=== PATIENT | female | born 1990 | race Caucasian/White ===

== ENCOUNTER → 2016-03-13 | Outpatient (CLI) | payer BC, OTHER ==
[~2016-03-13] MED LIST: AMOX875T PO; ARIP2TAB3 PO; ATV/1 PO; CEFU1TAB36 PO; FLUV100T12 PO; LMC25 PO; SULF800T23 PO; TOPI50TA16 PO; TPM/50 PO
[2016-03-13 15:13] LABS: BASO % 0.5 %; BASO ABS # 0.04 K/uL (0-0.2); COMPLETE YES; EOS % 1.4 %; HEMATOCRIT 42.1 % (37-47); LYMPH % 31.4 %; MEAN CELL VOLUME 85.4 fL (80-100); MEAN CORPUSCULAR HEMOGLOBIN 29.2 pg (25-34); MEAN CORPUSCULAR HGB CONC 34.2 g/dl (32-36); MEAN PLATELET VOLUME 10.1 fL (7.4-10.4); NEUT % 60.7 %; PLATELET COUNT 213 K/uL (130-400); RED BLOOD COUNT 4.93 M/uL (4.2-5.4); WHITE BLOOD COUNT 7.95 K/uL (4.8-10.8)
== END | disposition home or self-care (01) ==
LOC: C.LAB1850 14:27
PROVIDERS: ATTEND Internal Medicine
DX: Z30.9 Encounter for contraceptive management, unspecified (principal)

== ENCOUNTER 2016-04-26 23:05 | Inpatient (IN) | payer BC, OTHER ==
[~2016-04-26] VITALS: Ht 170.2 cm; Wt 117.5 kg
[~2016-04-26 23:05] MED LIST changes: -AMOX875T PO; -CEFU1TAB36 PO; -SULF800T23 PO
[2016-04-26] MEDS ORDERED: AMPICILLIN/SULBACTAM SOD INJ 3,000 MG in SODIUM CHLORIDE 0.9% 100ML 100 ML IV STA (23:28)
[2016-04-26] MEDS ORDERED: TOPIRAMATE 50 MG TAB PO STA (23:28)
[2016-04-26] MEDS ORDERED: FLUVOXAMINE MALEATE 50 MG TAB PO STA (23:28)
--- NOTE | 2016-04-26 23:36 | EMERGENCY ROOM VISIT NOTE ---
History First contact with patient: 23:16 Chief Complaint: BITE Stated Complaint: LEFT HAND DOG BITE, SWOLLEN History of Present Illness The patient is a 25 year old female who presents to the Emergency Room via private vehicle with complaints of "left hand dog bite, swollen". Patient states that earlier today she was helping take her friend's dog to [place], while in the backseat of the car she was trying to hold the dog who became nervous, and turned around and bit her on the left hand between the first and second digit as well as the wrist region. This occurred around 2 PM today. Patient notes that she went to [facility], who prescribed her an antibiotic but she did not begin this as her pharmacy was closed. 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 She feels the redness is rapidly spreading, and the swelling and pain in the hand is also rapidly increasing. She also feels like she has the flu, almost like she is getting sick since the event. She denies any chest pain, shortness of breath, abdominal pain. She has had associated chills. Her tetanus is up-to-date. The dog's rabies vaccinations are up-to-date. She denies chance of . Review of Systems A complete 6-point Review of Systems was discussed with the patient, with pertinent positives and negatives listed in the History of Present Illness. All remaining Review of Systems questions can be considered negative unless otherwise specified. Past Medical/Surgical History Medical Problems: (1) Bipolar disorder (2) Bronchitis (3) Bronchitis Nos (4) Cat bite (5) Cellulitis (6) Cellulitis of left upper extremity (7) Contusion of right hand (8) Cough (9) Dog Bite (10) Fall from slip, trip, or stumble (11) Finger Injury Nos (12) Head Injury, Nos (13) Infected dog bite of hand (14) Injury of left little finger (15) SIRS (systemic inflammatory response syndrome) Family History Heart disease, cancer Social History Smoking Status: Never Smoker Drug Use: none Marital Status: single Housing Status: lives with family Occupation Status: employed Social History: 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 Current/Historical Medications Scheduled Aripiprazole (Abilify), 2 MG PO Q2D Fluvoxamine Maleate (Luvox), 300 MG PO QPM Lamotrigine (Lamotrigine), 75 MG PO QPM Topiramate (Topamax), 50 MG PO QAM Topiramate (Topamax), 75 MG PO QPM Scheduled PRN Lorazepam (Ativan), 1 MG PO QID PRN for Anxiety Allergies Coded Allergies: BEE STING (Verified Allergy, Unknown, SWELLING, 04/26/16) Chlorine (Verified Allergy, Unknown, RASH, 04/26/16) Apple (Verified Adverse Reaction, Mild, Apple Juice - GI symptoms, 04/26/16 ) Physical Exam Vital Signs Date Time Temp Pulse Resp B/P Pulse Ox O2 Delivery O2 Flow Rate FiO2 04/27/16 01:00 98 16 124/76 98 Room Air 04/26/16 23:12 37.1 106 20 139/81 97 Room Air Physical Exam VITAL SIGNS - Vital signs and nursing notes were reviewed. Patient is afebrile , normotensive, 70 tachycardic and is saturating on room air 97%. GENERAL -25-year-old female appearing her stated age who is in no acute distress. Communicates well with provider and answers questions appropriately. SKIN - there is edema, and erythema of the lateral aspect of the left first and second digits extending proximally into the base of the left hand and into the wrist. The area is tender and warm to touch. There are small superficial bites to the bilateral hands. There are also several superficial scratches to the left anterior breast. HEAD - NC/AT. EYES - Sclera anicteric. Palpebral conjunctiva pink and moist with no injection noted. EARS - No deformities of external structures noted on gross examination bilaterally. NOSE - Midline and without cyanosis. MOUTH/OROPHARYNX - Without perioral cyanosis. NECK - Neck with FROM. Supple to palpation. No lymphadenopathy noted. No nuchal rigidity. No meningismus. LUNGS - Chest wall symmetric without accessory muscle use, intercostals retractions, or central cyanosis. Normal vesicular breath sounds CTA B/L. No wheezes, rales, or rhonchi appreciated. CARDIAC - RRR with S1/S2. No murmur, rubs, or gallops appreciated. EXTREMITIES -skin as described above. She is vascular intact in the affected extremity. Numbness sensation to palpation. There is tenderness also to palpation. Good capillary refill. +5/5 strength noted in UE/LE bilaterally. Medical Decision & Procedures ER Provider Diagnostic Interpretation: Hand x-ray read by myself, no fractures or retained foreign body visualized. There is evidence for soft tissue swelling. Laboratory Results 04/26/16 23:55 Red Blood Count 4.64, Mean Corpuscular Volume 83.4, Mean Corpuscular Hemoglobin 29.5, Mean Corpuscular Hemoglobin Concent 35.4, Mean Platelet Volume 9.7, Neutrophils (%) (Auto) 62.0, Lymphocytes (%) (Auto) 29.0, Monocytes (%) (Auto) 7.8, Eosinophils (%) (Auto) 0.7, Basophils (%) (Auto) 0.3, Neutrophils # (Auto) 6.39, Lymphocytes # (Auto) 2.99, Monocytes # (Auto) 0.80, Eosinophils # (Auto) 0.07, Basophils # (Auto) 0.03 04/26/16 23:55 Test 04/26/16 23:55 04/27/16 00:13 04/27/16 00:34 White Blood Count 10.30 K/uL (4.8-10.8) Red Blood Count 4.64 M/uL (4.2-5.4) Hemoglobin 13.7 g/dL (12.0-16.0) Hematocrit 38.7 % (37-47) Mean Corpuscular Volume 83.4 fL (80-100) Mean Corpuscular Hemoglobin 29.5 pg (25-34) Mean Corpuscular Hemoglobin Concent 35.4 g/dl (32-36) Platelet Count 211 K/uL (130-400) Mean Platelet Volume 9.7 fL (7.4-10.4) Neutrophils (%) (Auto) 62.0 % Lymphocytes (%) (Auto) 29.0 % Monocytes (%) (Auto) 7.8 % Eosinophils (%) (Auto) 0.7 % Basophils (%) (Auto) 0.3 % Neutrophils # (Auto) 6.39 K/uL (1.4-6.5) Lymphocytes # (Auto) 2.99 K/uL (1.2-3.4) Monocytes # (Auto) 0.80 K/uL (0.11-0.59) Eosinophils # (Auto) 0.07 K/uL (0-0.5) Basophils # (Auto) 0.03 K/uL (0-0.2) RDW Standard Deviation 39.6 fL (36.4-46.3) RDW Coefficient of Variation 13.1 % (11.5-14.5) Immature Granulocyte % (Auto) 0.2 % Immature Granulocyte # (Auto) 0.02 K/uL (0.00-0.02) Anion Gap 9.0 mmol/L (3-11) Est Creatinine Clear Calc Drug Dose 114.1 ml/min Estimated GFR () 91.2 Estimated GFR (Non- 78.6 BUN/Creatinine Ratio 16.0 (10-20) Calcium Level 9.1 mg/dl (8.5-10.1) Bedside Lactic Acid Venous 1.41 mmol/L (0.90-1.70) Influenza Type A Antigen Neg for Influ A (NEG) Influenza Type B Antigen Neg for Influ B (NEG) Medications Administered Medications (Trade) Dose Ordered Sig/Terence Route Start Time Stop Time Status Last Admin Dose Admin Ampicillin Sodium/ Sulbactam Sodium/ Sodium Chloride (Unasyn Inj/Nss 100ml) 108 ml @ 200 mls/hr NOW STAT IV 04/26/16 23:28 04/27/16 00:00 DC 04/27/16 00:13 200 MLS/HR Fluvoxamine Maleate (Luvox Tab) 300 mg NOW STAT PO 04/26/16 23:28 04/26/16 23:32 DC 04/26/16 23:28 300 MG Lamotrigine (Lamictal Tab) 75 mg NOW STAT PO 04/26/16 23:28 04/26/16 23:32 DC 04/26/16 23:28 75 MG Topiramate (Topamax Tab) 75 mg NOW STAT PO 04/27/16 00:14 04/27/16 00:18 DC 04/27/16 00:14 75 MG Ondansetron HCl 4 mg 4 mg NOW STAT PO 04/27/16 00:14 04/27/16 00:18 DC 04/27/16 00:14 4 MG Sodium Chloride (Nss 500ml) 500 ml @ 999 mls/hr Q31M STAT IV 04/27/16 00:21 04/27/16 00:51 DC 04/27/16 00:21 999 MLS/HR Medical Decision Patient was seen and evaluated as above. After obtaining a thorough history and physical examination IV access was obtained and a CBC, PRP, [id number] lactic, blood cultures were drawn secondary to subjective and objective examination findings. The patient is less than 12 hours out from a dog bite showing significant signs of cellulitis of the hand that is progressing proximally to the wrist. No lymphangitic streaking. She was given 3 g of Unasyn, as well as her nighttime medication as listed above. Due to the involvement, I was concerned about potential retained foreign body or fracture of which I was not able to appreciate upon radiograph. Official readings are pending. Before the infusion medication the patient noted that she felt as if she was getting sick, therefore I did obtain a flu swab which was negative. Patient then vomited. I was concerned for SIRS. Case was discussed with my attending, and the decision was made to consult the admitting team. I spoke Dr. Loya, regarding the patient case and he accepted the admission. Please refer to further documentation regarding the patient's stay. Patient's tetanus is up-to-date. She notes that the dogs rabies shots are up-to -date. Patient does not provide information regarding the graphic design manager of the dog, she fears that they may get in trouble. In the evaluation and treatment of this patient the following differential diagnoses were entertained: Cellulitis, sepsis, SIRS, fracture, retained foreign body, among others. Impression Primary Impression: Dog bite Additional Impressions: Cellulitis SIRS (systemic inflammatory response syndrome) Departure Information Dispostion Admitted as an inpatient Condition FAIR Referrals RV. Rawls MD (PCP) Patient Instructions [facility] Problem Qualifiers Primary Impression: Dog bite Encounter type: initial encounter Qualified Codes: W54.0XXA - Bitten by dog , initial encounter Additional Impressions: Cellulitis Site of cellulitis: extremity Site of cellulitis of extremity: upper extremity Laterality: left Qualified Codes: L03.114 - Cellulitis of left upper limb
[2016-04-27] MEDS ORDERED: ONDANSETRON 4MG OD TAB PO STA (00:14)
[2016-04-27] MEDS ORDERED: TOPIRAMATE 50 MG TAB PO STA (00:14)
[2016-04-27] MEDS ORDERED: SODIUM CHLORIDE 0.9% 500ML 500 ML IV STA (00:21)
[2016-04-27 00:30] LABS: BASO % 0.3 %; BASO ABS # 0.03 K/uL (0-0.2); COMPLETE YES; EOS % 0.7 %; HEMATOCRIT 38.7 % (37-47); IG% 0.2 %; LYMPH ABS # 2.99 K/uL (1.2-3.4); MEAN CELL VOLUME 83.4 fL (80-100); MEAN CORPUSCULAR HEMOGLOBIN 29.5 pg (25-34); MEAN CORPUSCULAR HGB CONC 35.4 g/dl (32-36); MEAN PLATELET VOLUME 9.7 fL (7.4-10.4); MONO % 7.8 %; PLATELET COUNT 211 K/uL (130-400); RED BLOOD COUNT 4.64 M/uL (4.2-5.4)
[2016-04-27 00:47] LABS: CALCIUM 9.1 mg/dl (8.5-10.1); CREATININE 0.99 mg/dl (0.60-1.20); POTASSIUM 3.3 mmol/L (3.5-5.1)
[2016-04-27] MEDS ORDERED: POTASSIUM CHLORIDE 10 MEQ TABCR PO STA (01:39)
[2016-04-27] MEDS ORDERED: ACETAMINOPHEN IV 100 ML IV PRN (01:45)
[2016-04-27] MEDS ORDERED: ZOLPIDEM TARTRATE 5 MG TAB PO PRN (01:45)
[2016-04-27] MEDS ORDERED: ONDANSETRON INJ 2 MG/ML 2 ML VIAL IV PRN (01:45)
[2016-04-27] MEDS ORDERED: LORAZEPAM 1 MG TAB PO PRN (01:45)
[2016-04-27] MEDS ORDERED: SULFAMETHOXAZOLE/TRIMETHOPRIM DS 800/160MG TAB PO STA (01:45)
[2016-04-27] MEDS ORDERED: KETOROLAC TROMETHAMINE 30 MG/ML VIAL IV PRN (01:45)
[2016-04-27] MEDS ORDERED: ACETAMINOPHEN 325 MG TAB PO PRN (01:45)
[2016-04-27 03:13] VITALS: BP 113/77; PULSE 77; TEMP 36.4; O2SAT 100
[2016-04-27] MEDS ORDERED: MoRPHine SULFATE 4 MG/ML 1 ML CARP\\VIAL IV PRN (03:30)
[2016-04-27] MEDS ORDERED: MoRPHine SULFATE 2 MG/ML CARP IV PRN (03:30)
[2016-04-27] MEDS ORDERED: HYDROCODONE/ACETAMOPHEN 5/325MG TAB PO PRN ×2 (03:30)
--- NOTE | 2016-04-27 04:44 | History and Physical ---
History & Physical Date & Time of Service: Apr 27, 2016 at 04:34 Chief Complaint: Cellulitis Of Left Upper Extremity, Sirs Primary Care Physician: RV. Rawls MD History of Present Illness Source: patient The patient is a 25-year-old female who presents emergency department complaint of progressively worsening swelling and redness and pain of her left hand after a dog bite around 2 PM earlier in the day, while helping taking a friend's dog platelets per hospital. Upon return to [place] [facility] and she was not able to get filled due to her pharmacy being closed. 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 She reports that she also feels like she has symptoms of the flu, with generalized muscle aches and nausea, and did have an episode of emesis prior to arrival. She reports that her tetanus is up-to-date, and the dog's rabies vaccinations are up-to-date. Past Medical/Surgical History Medical Problems: (1) Bipolar disorder Status: Chronic (2) Bronchitis Status: Resolved (3) Bronchitis Nos Status: Resolved (4) Cat bite Status: Resolved (5) Cellulitis Status: Resolved (6) Contusion of right hand Status: Resolved (7) Cough Status: Resolved (8) Dog Bite Status: Resolved (9) Fall from slip, trip, or stumble Status: Resolved (10) Finger Injury Nos Status: Resolved (11) Head Injury, Nos Status: Resolved (12) Infected dog bite of hand Status: Resolved (13) Injury of left little finger Status: Resolved Social History Smoking Status: Never Smoker Smokeless Tobacco Use: No Alcohol Use: none Drug Use: none Marital Status: single Occupational Status: employed Multi-Drug Resistant Organisms History of MDRO: No Allergies Coded Allergies: BEE STING (Verified Allergy, Unknown, SWELLING, 04/26/16) Chlorine (Verified Allergy, Unknown, RASH, 04/26/16) Apple (Verified Adverse Reaction, Mild, Apple Juice - GI symptoms, 04/26/16 ) Home Medications Scheduled Aripiprazole (Abilify), 2 MG PO Q2D Fluvoxamine Maleate (Luvox), 300 MG PO QPM Lamotrigine (Lamotrigine), 75 MG PO QPM Topiramate (Topamax), 50 MG PO QAM Topiramate (Topamax), 75 MG PO QPM Scheduled PRN Lorazepam (Ativan), 1 MG PO QID PRN for Anxiety Review of Systems The patient denies chest pain, palpitations, shortness of breath, cough, lower extremity swelling, vision change, hearing change, sore throat, abdominal pain, pelvic pain, blood in urine or stool, dysuria, urinary frequency or urgency, headache, memory loss, abnormal bruising or bleeding, imbalance, focal or generalized weakness, numbness or tingling in legs, back or neck pain, night sweats, or allergy symptoms. The review of systems is otherwise negative other than for that already noted above, and at least 10 systems have been reviewed. Physical Exam Vital Signs Date Time Temp Pulse Resp B/P Pulse Ox O2 Delivery O2 Flow Rate FiO2 04/27/16 03:13 36.4 77 20 113/77 100 Room Air 04/27/16 02:53 71 16 124/76 98 04/27/16 01:00 98 16 124/76 98 Room Air 04/26/16 23:12 37.1 106 20 139/81 97 Room Air The patient is awake, well-developed and adequately nourished, alert and oriented 3, normocephalic and atraumatic, lying in bed and in no acute distress. HEENT--PERRL, EOMI, mucous membranes and oropharynx moist. Neck--supple, no JVD or bruits, thyroid normal, trachea midline, no adenopathy. Heart--normal S1 and S2, no extra beats, no murmurs, rubs or gallops. Lungs--clear bilaterally with good air movement, no respiratory distress, no accessory muscle use. Abdomen--normal bowel sounds and soft, nontender and nondistended, no hernias or masses, no organomegaly. Extremities--bilateral lower extremities no cyanosis, clubbing or edema. There are good distal pulses b/l. For left upper extremity see below. Dermatologic--normal skin turgor, normal color, warm and dry, no abnormal lymph nodes, no rash, except for left hand and wrist which show moderately severe erythema involving the base of the thumb first and second fingers dorsum of the hand and wrist, with puncture wound draining clear fluid. Neurologic--cranial nerves II through XII grossly intact, motor and sensory examination normal. Rheumatologic--normal range of motion, nontender, muscles and joints except for left hand and wrist which have decreased flexion and extension due to edema. Psychiatric--normal affect. Diagnostics Laboratory Results Results Past 24 Hours Test 04/26/16 23:55 04/27/16 00:13 04/27/16 00:34 Range/Units White Blood Count 10.30 4.8-10.8 K/uL Red Blood Count 4.64 4.2-5.4 M/uL Hemoglobin 13.7 12.0-16.0 g/dL Hematocrit 38.7 37-47 % Mean Corpuscular Volume 83.4 80-100 fL Mean Corpuscular Hemoglobin 29.5 25-34 pg Mean Corpuscular Hemoglobin Concent 35.4 32-36 g/dl Platelet Count 211 130-400 K/uL Mean Platelet Volume 9.7 7.4-10.4 fL Neutrophils (%) (Auto) 62.0 % Lymphocytes (%) (Auto) 29.0 % Monocytes (%) (Auto) 7.8 % Eosinophils (%) (Auto) 0.7 % Basophils (%) (Auto) 0.3 % Neutrophils # (Auto) 6.39 1.4-6.5 K/uL Lymphocytes # (Auto) 2.99 1.2-3.4 K/uL Monocytes # (Auto) 0.80 0.11-0.59 K/uL Eosinophils # (Auto) 0.07 0-0.5 K/uL Basophils # (Auto) 0.03 0-0.2 K/uL RDW Standard Deviation 39.6 36.4-46.3 fL RDW Coefficient of Variation 13.1 11.5-14.5 % Immature Granulocyte % (Auto) 0.2 % Immature Granulocyte # (Auto) 0.02 0.00-0.02 K/uL Sodium Level 139 136-145 mmol/L Potassium Level 3.3 3.5-5.1 mmol/L Chloride Level 107 98-107 mmol/L Carbon Dioxide Level 23 21-32 mmol/L Anion Gap 9.0 3-11 mmol/L Blood Urea Nitrogen 16 7-18 mg/dl Creatinine 0.99 0.60-1.20 mg/dl Est Creatinine Clear Calc Drug Dose 114.1 ml/min Estimated GFR () 91.2 Estimated GFR (Non- 78.6 BUN/Creatinine Ratio 16.0 10-20 Random Glucose 97 70-99 mg/dl Calcium Level 9.1 8.5-10.1 mg/dl Bedside Lactic Acid Venous 1.41 0.90-1.70 mmol/L Influenza Type A Antigen Neg for Influ A NEG Influenza Type B Antigen Neg for Influ B NEG Microbiology Results 04/27/16 Blood Culture, Received Pending 04/26/16 Blood Culture, Received Pending Diagnostic Radiology Left hand x-ray shows no signs of foreign body or osteomyelitis. Impression Assessment and Plan Left upper extremity cellulitis secondary to dog bite--the patient will be admitted to the medical floor. She has received Unasyn 3 g IV in the emergency department and this will be continued every 6 hours intervals. We'll also add Bactrim DS by mouth twice a day with first dose now. She does not look to need an I&D at this time, but if she should worsen, we'll consult orthopedic surgery then. Bipolar disorder--continue Abilify 2 mg by mouth every 2 days, fluvoxamine 300 mg by mouth every evening, lamotrigine 75 mg by mouth every evening, topiramate 50 mg by mouth every morning and 75 mg by mouth every evening, and lorazepam 1 mg by mouth 4 times a day when necessary. Level of Care Med/Surg Advanced Directives Existing Advance Directive: No Existing Living Will: No Existing Power of General Car Yard Supervisor: No Resuscitation Status FULL RESUSCITATION VTE Prophylaxis VTE Risk Assessment Done? Y/N: Yes Risk Level: Low Given or contraindicated: Treatment not indicated Social Service Consult None Apply
[2016-04-27 05:03] VITALS: BP 113/77; PULSE 77; TEMP 36.4; Ht 170.2 cm; Wt 117.5 kg
[2016-04-27] MEDS: AMPICILLIN/SULBACTAM SOD INJ 3,000 MG in SODIUM CHLORIDE 0.9% 100ML 100 ML IV SCH ×3 (06:10→18:05)
--- NOTE | 2016-04-27 06:44 | DIAGNOSTIC IMAGING REPORT ---
LEFT HAND MIN 3 VIEWS ROUTINE CLINICAL HISTORY: Dog bite left hand, edema, cellulitic. COMPARISON: Left hand radiographs January 12, 2016. FINDINGS: Alignment of the left hand is anatomic. There is no acute fracture. No radiopaque foreign bodies present. There may be dorsal soft tissue swelling. Carpal bones are intact. There is no radiographic evidence of osteomyelitis. IMPRESSION: No acute fracture or radiographic evidence of osteomyelitis within the left hand. Electronically signed by: Ambrocio Rachel M.D. 04/27/2016 6:43 AM Dictated Date/Time: 04/27/2016 6:42 AM
[2016-04-27 08:06] VITALS: BP 111/72; PULSE 83; TEMP 36.7; O2SAT 98
[2016-04-27] MEDS: ARIPIprazole 1 MG/ML ORAL SOLN 150 ML BTL PO SCH ×3 (09:00→09:08)
[2016-04-27] MEDS: SULFAMETHOXAZOLE/TRIMETHOPRIM DS 800/160MG TAB PO SCH ×2 (09:04→20:53)
[2016-04-27] MEDS: TOPIRAMATE 25 MG TAB PO SCH (09:04)
[2016-04-27] MEDS ORDERED: VANCOMYCIN INJ 1,000 MG in SODIUM CHLORIDE 0.9% 250ML 250 ML IV ONE (14:45)
--- NOTE | 2016-04-27 14:55 | Family Medicine Progress Note ---
Progress Note Date of Service Apr 27, 2016. Subjective Pt evaluation today including: conversation w/ patient, physical exam Pain: No pain reported this morning Voiding: no voiding problems Patient is a healthy 25 year old female that presents with a dog bite to her left hand. Patient denies any n/v, fever, chills. Feels that the swelling has gotten worse but in less pain that yesterday. Medications Current Inpatient Medications Medications (Trade) Dose Ordered Sig/Terence Route Start Time Stop Time Status Last Admin Dose Admin Fluvoxamine Maleate (Luvox Tab) 300 mg QPM PO 04/27/16 21:00 05/27/16 20:59 Lamotrigine (Lamictal Tab) 75 mg QPM PO 04/27/16 21:00 05/27/16 20:59 Lorazepam (Ativan Tab) 1 mg QID PRN PO 04/27/16 01:45 05/27/16 01:44 Topiramate (Topamax Tab) 50 mg QAM PO 04/27/16 09:00 05/27/16 08:59 04/27/16 09:04 50 MG Topiramate (Topamax Tab) 75 mg QPM PO 04/27/16 21:00 05/27/16 20:59 Aripiprazole (Abilify Soln) 2 mg Q2D@0900 PO 04/27/16 09:00 05/27/16 08:59 Acetaminophen (Tylenol Tab) 650 mg Q4H PRN PO 04/27/16 01:45 05/27/16 01:44 Zolpidem Tartrate (Ambien Tab) 5 mg HSZ PRN PO 04/27/16 01:45 05/27/16 01:44 Ondansetron HCl 4 mg 4 mg Q6H PRN IV 04/27/16 01:45 05/27/16 01:44 Acetaminophen (Ofirmev Iv) 100 ml @ 400 mls/hr Q8H PRN IV 04/27/16 01:45 05/27/16 01:44 Ketorolac Tromethamine (Toradol Inj) 30 mg Q6H PRN IV 04/27/16 01:45 05/02/16 01:44 Acetaminophen/ Hydrocodone Bitart (Devine 5/325 Tab) 1 tab Q6H PRN PO 04/27/16 03:30 05/11/16 03:29 Acetaminophen/ Hydrocodone Bitart (Devine 5/325 Tab) 2 tab Q6H PRN PO 04/27/16 03:30 05/11/16 03:29 Morphine Sulfate (MoRPHine SULFATE INJ) 2 mg Q2H PRN IV 04/27/16 03:30 05/11/16 03:29 Morphine Sulfate 4 mg 4 mg Q2H PRN IV 04/27/16 03:30 05/11/16 03:29 Ampicillin Sodium/ Sulbactam Sodium/ Sodium Chloride (Unasyn Inj/Nss 100ml) 108 ml @ 200 mls/hr Q6H IV 04/27/16 06:00 05/07/16 05:59 04/27/16 13:22 200 MLS/HR Trimethoprim/ Sulfamethoxazole 1 tab 1 tab Q12 PO 04/27/16 09:00 05/07/16 08:59 04/27/16 09:04 1 TAB Vancomycin HCl/ Sodium Chloride (Vancomycin Inj/ Nss 250ml) 270 ml @ 125 mls/hr NOW ONCE IV 04/27/16 14:45 04/27/16 16:54 Objective Vital Signs Date Time Temp Pulse Resp B/P Pulse Ox O2 Delivery O2 Flow Rate FiO2 04/27/16 08:06 36.7 83 16 111/72 98 Room Air 04/27/16 08:00 Room Air 04/27/16 05:03 36.4 77 20 113/77 Room Air 04/27/16 03:13 36.4 77 20 113/77 100 Room Air 04/27/16 02:53 71 16 124/76 98 04/27/16 01:00 98 16 124/76 98 Room Air 04/26/16 23:12 37.1 106 20 139/81 97 Room Air Physical Exam General Appearance: WD/WN, no apparent distress Extremities: + pertinent finding (Erythema on the dorsal surface of the hand. Margins of the distal wrist, 1st digit, Finger tips, and 3rd digit. Puncture irving visible over lateral thumb and 2 abrasions on the middle finger. There is some clear bruising over the palmar aspect of the hand. Not warm to touch. Tender to palpation over the first digit near puncture wound. Sensation to sharp and dull still present on finger tips as well as dorum and palmar surfaces. Pulses 2+ at wrist. Limitied range of motion in first 3 digits due to swelling. No pain to palpation or redness of the wrist, mcps, pips, dips.) Neurologic/Psychiatric: alert, normal mood/affect, oriented x 3 Laboratory Results Results Past 24 Hours Test 04/26/16 23:55 04/27/16 00:13 04/27/16 00:34 Range/Units White Blood Count 10.30 4.8-10.8 K/uL Red Blood Count 4.64 4.2-5.4 M/uL Hemoglobin 13.7 12.0-16.0 g/dL Hematocrit 38.7 37-47 % Mean Corpuscular Volume 83.4 80-100 fL Mean Corpuscular Hemoglobin 29.5 25-34 pg Mean Corpuscular Hemoglobin Concent 35.4 32-36 g/dl Platelet Count 211 130-400 K/uL Mean Platelet Volume 9.7 7.4-10.4 fL Neutrophils (%) (Auto) 62.0 % Lymphocytes (%) (Auto) 29.0 % Monocytes (%) (Auto) 7.8 % Eosinophils (%) (Auto) 0.7 % Basophils (%) (Auto) 0.3 % Neutrophils # (Auto) 6.39 1.4-6.5 K/uL Lymphocytes # (Auto) 2.99 1.2-3.4 K/uL Monocytes # (Auto) 0.80 0.11-0.59 K/uL Eosinophils # (Auto) 0.07 0-0.5 K/uL Basophils # (Auto) 0.03 0-0.2 K/uL RDW Standard Deviation 39.6 36.4-46.3 fL RDW Coefficient of Variation 13.1 11.5-14.5 % Immature Granulocyte % (Auto) 0.2 % Immature Granulocyte # (Auto) 0.02 0.00-0.02 K/uL Sodium Level 139 136-145 mmol/L Potassium Level 3.3 3.5-5.1 mmol/L Chloride Level 107 98-107 mmol/L Carbon Dioxide Level 23 21-32 mmol/L Anion Gap 9.0 3-11 mmol/L Blood Urea Nitrogen 16 7-18 mg/dl Creatinine 0.99 0.60-1.20 mg/dl Est Creatinine Clear Calc Drug Dose 114.1 ml/min Estimated GFR () 91.2 Estimated GFR (Non- 78.6 BUN/Creatinine Ratio 16.0 10-20 Random Glucose 97 70-99 mg/dl Calcium Level 9.1 8.5-10.1 mg/dl Bedside Lactic Acid Venous 1.41 0.90-1.70 mmol/L Influenza Type A Antigen Neg for Influ A NEG Influenza Type B Antigen Neg for Influ B NEG Microbiology Results 04/27/16 Blood Culture, Received Pending 04/26/16 Blood Culture, Received Pending Assessment and Plan Patient is a 25 year old female that presented yesterday afternoon with a dog bite to her left hand that occurred at 2pm 1) Dog Bite - Unasyn 3g IV q6h - Bactrim DS BID - When seen for afternoon rounds, the erythema has extended slightly proximally along the wrist about 1-2 mm as well as 1-2 mm along the dorsal surface towards the 4th digit. Added dose of 1gm Vancomycin IV to provide additional coverage 2) Depression and Anxiety - Continue home medications - Abilify 2mg PO q2D - Luvox 300mg PO qPM - Lamictal 75mg PO qPM 3) Migraines - Topamax 50mg qAM, 75mg qPM 4) Pain Control - PRN Devine, Morphine, and Toradol
[2016-04-27 15:00] VITALS: BP 127/83; PULSE 78; TEMP 37; O2SAT 98
[2016-04-27 16:00] VITALS: O2SAT 98
[2016-04-27] MEDS ORDERED: TOPIRAMATE 25 MG TAB PO SCH (21:00)
[2016-04-27] MEDS ORDERED: FLUVOXAMINE MALEATE 50 MG TAB PO SCH (21:00)
[2016-04-28] VITALS: BP 122/77; PULSE 70; TEMP 36.9; O2SAT 98
[2016-04-28] MEDS: AMPICILLIN/SULBACTAM SOD INJ 3,000 MG in SODIUM CHLORIDE 0.9% 100ML 100 ML IV SCH ×2 (00:05→06:17)
[2016-04-28 07:38] VITALS: BP 111/71; PULSE 66; TEMP 36.7; O2SAT 98
[2016-04-28] MEDS: SULFAMETHOXAZOLE/TRIMETHOPRIM DS 800/160MG TAB PO SCH (08:05)
[2016-04-28] MEDS: TOPIRAMATE 25 MG TAB PO SCH (08:06)
[2016-04-28 11:10] VITALS: BP 111/71; PULSE 66; TEMP 36.7; O2SAT 98
[2016-04-28] MEDS ORDERED: SULF800T23 PO (11:27)
[2016-04-28] MEDS ORDERED: AMOX875T PO (11:27)
--- NOTE | 2016-04-28 11:30 | Discharge Instructions ---
Discharge Instructions Admission Reason for Admission: Cellulitis Of Left Upper Extremity, Sirs Discharge Discharge Diagnosis / Problem: Cellulitis 2/2 Dog Bite Discharge Goals Goal(s): Decrease discomfort Activity Recommendations Activity Limitations: per Instructions/Follow-up section Lifting Limitations: gradually increase as tolerated Exercise/Sports Limitations: as tolerated Shower/Bathe: no limitations . Instructions / Follow-Up Instructions / Follow-Up - Take 1 Tab of Bactrim DS twice daily for 8 days (16 Doses Total) - Take 1 Tab of Augmentin twice daily for 8 days (16 Doses Total) - Follow up with primary care physician (Dr. Chappell) in 10 days to reevaluate hand wound - Return to ED if infection appears to be spreading or begin to have fevers Current Hospital Diet Patient's current hospital diet: Regular Diet Discharge Diet Recommended Diet: Regular Diet Pending Studies Studies pending at discharge: no Medical Emergencies . Who to Call and When: Medical Emergencies: If at any time you feel your situation is an emergency, please call 911 immediately. . Non-Emergent Contact Non-Emergency issues call your: Primary Care Provider . . "Provider Documentation" section prepared by Jacinto Poe. VTE Core Measure Inpt VTE Proph given/why not?: Treatment not indicated
--- NOTE | 2016-04-28 14:07 | Discharge Summary ---
Discharge Summary Date of Service Apr 28, 2016. Discharge Summary Admission Date: Apr 27, 2016 at 01:33 Discharge Date: Apr 28, 2016 Discharge Disposition: Home Principal Diagnosis: Cellulitis associated with dog bite Problems/Secondary Diagnoses: (1) Bipolar disorder Status: Chronic Procedures: hand x-ray: swelling, no fractures, no bone involvement Consultations: none Medication Reconciliation New Medications: Amoxicillin & Pot Clavulanate (Augmentin 875-125 mg) 1 Tab Tab 1 TAB PO BID for 8 Days, #16 TAB Sulfamethoxazole-Trimethoprim (Bactrim Ds 800MG/160MG) 1 Tab Tab 1 TAB PO BID for 8 Days, #16 TAB Continued Medications: Aripiprazole (Abilify) 2 Mg Tab 2 MG PO Q2D Fluvoxamine Maleate (Luvox) 100 Mg Tab 300 MG PO QPM, TAB Lamotrigine (Lamotrigine) 25 Mg Tab 75 MG PO QPM Lorazepam (Ativan) 1 Mg Tab 1 MG PO QID PRN for Anxiety, TAB MAX = 4MG DAILY Topiramate (Topamax) 50 Mg Tab 50 MG PO QAM Topiramate (Topamax) 50 Mg Tab 75 MG PO QPM, TAB Discharge Exam Patient feeling much better today, swelling down significantly, no erythema, much less pain. No fevers/chills over night. Review of Systems: Constitutional: No chills, No fatigue, No fever, No problem reported, No sweats, No weakness, No weight loss Eyes: No diplopia, No discharge, No eye pain, No problem reported, No redness, No worsening of vision ENT: No dental problems, No hearing loss, No nasal symptoms, No problem reported, No sore throat, No tinnitus, No trouble swallowing, No unusual epistaxis Respiratory: No cough, No dyspnea at rest, No dyspnea on exertion, No hemoptysis, No problem reported, No shortness of breath, No sputum, No wheezing Cardiovascular: No PND, No chest pain, No claudication, No edema, No orthopnea, No palpitations, No problem reported Abdomen: No GI bleeding, No constipation, No diarrhea, No nausea, No pain, No problem reported, No vomiting Musculoskeletal: + joint pain (left hand swelling, pain), + swelling (left hand), No calf pain, No muscle pain, No problem reported Genitourinary - Female: No dysuria, No hematuria, No urinary frequency, No urinary incontinence, No urinary retention, No urinary urgency Neurologic: No balance problems, No memory loss, No numbness/tingling, No paralysis, No problem reported, No vertigo, No weakness Psychiatric: No anhedonism, No anxiety, No depression symptoms, No insomnia , No problem reported, No substance abuse Endocrine: No excessive thirst, No excessive urination, No fatigue, No problem reported Hematologic / Lymphatic: No abnormal bleeding/bruising, No clotting problems , No night sweats, No problem reported, No swollen lymph nodes Integumentary: + rash (left hand erythema, improved overnight), No bleeding , No color change, No itch, No new/changing skin lesions, No problem reported Physical Exam: General Appearance: WD/WN, no apparent distress Eyes: normal inspection, EOMI, sclerae normal ENT: normal ENT inspection, hearing grossly normal, pharynx normal Neck: supple, no adenopathy, no JVD, trachea midline Respiratory/Chest: chest non-tender, lungs clear, normal breath sounds, no respiratory distress, no accessory muscle use Cardiovascular: regular rate, rhythm, no edema, no gallop, no JVD, no murmur , normal peripheral pulses Abdomen / GI: normal bowel sounds, non tender, soft, no organomegaly Extremities: normal inspection, no calf tenderness, normal capillary refill , no pedal edema, normal range of motion Neurologic/Psychiatric: 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 Clear evidence of cellulitis on admission. Cellulitis left hand associated with dog bite, small penetrating wounds treated with Unasyn and Vancomycin, marked improvement overnight after Vancomycin added in the afternoon will d/c home on 8 more days of Augmentin and Bactrim, total of 10 days of treatment she is instructed to return if pain and/or swelling gets worse instead of better no evidence of any drainable abscess at this time afebrile, WBC normal, BMP normal Depression and Anxiety - Continue home medications - Abilify 2mg PO q2D - Luvox 300mg PO qPM - Lamictal 75mg PO qPM Migraines - Topamax 50mg qAM, 75mg qPM Total Time Spent: Greater than 30 minutes This includes examination of the patient, discharge planning, medication reconciliation, and communication with other providers. Discharge Instructions Please refer to the electronic Patient Visit Report (Discharge Instructions) for additional information. Follow-Up Dr. Chappell in 1-2 weeks, patient says she is leaving for [place] next week for a 10 day trip Additional Copies To RV. Rawls MD
== END 2016-04-28 12:07 | disposition home or self-care (01) | DRG 605 ==
LOC: ENRESERVTM → ENRESERVDT → C.EDB 23:06 → C.MED 04-27 01:33
PROVIDERS: ADMIT Hospitalist; ATTEND Internal Medicine
DX: S61.452A Open bite of left hand, initial encounter (principal); L03.114 Cellulitis of left upper limb; F31.9 Bipolar disorder, unspecified; Z91.030 Bee allergy status; Z91.048 Other nonmedicinal substance allergy status; Z91.018 Allergy to other foods; Z79.899 Other long term (current) drug therapy; G43.909 Migraine, unspecified, not intractable, without status migrainosus; F41.9 Anxiety disorder, unspecified; W54.0XXA Bitten by dog, initial encounter

== ENCOUNTER → 2016-09-14 | Outpatient (CLI) | payer BC, OTHER ==
[~2016-09-14] MED LIST changes: +CEFU1TAB36 PO
[2016-09-14 19:24] LABS: URINE APPEARANCE CLEAR (CLEAR); URINE BILIRUBIN NEG (NEG); URINE COLOR YELLOW; URINE EPITHELIAL CELL AUTO >30 /lpf (0-5); URINE NITRITE NEG (NEG); URINE PH 6.5 (4.5-7.5); URINE SPECIFIC GRAVITY 1.018 (1.000-1.030); UROBILINOGEN NEG (NEG)
[2016-09-14 19:46] LABS: MANUAL MICROSCOPIC REQUIRED? NO; REVIEW REQ? YES
[2016-09-14 20:04] LABS: URINE MUCUS PRESENT (NONE PRSENT)
[2016-09-18 10:08] LABS: CHLAMYDIA TRACH RNA*** NOT DETECTED (NOT DETECTED); GC (NEIS GONORRHOEAE)RNA** NOT DETECTED (NOT DETECTED)
== END | disposition home or self-care (01) ==
LOC: C.LABSPEC 17:50
PROVIDERS: ATTEND Obstetrics & Gynecology
DX: R30.0 Dysuria (principal); N89.8 Other specified noninflammatory disorders of vagina

== ENCOUNTER 2016-10-26 00:06 | Emergency (ER) | payer BC, OTHER ==
[~2016-10-26] VITALS: Ht 167.6 cm; Wt 118.1 kg
[~2016-10-26 00:06] MED LIST changes: -CEFU1TAB36 PO
[2016-10-26 00:18] VITALS: TEMP 37; Ht 167.6 cm; Wt 118.1 kg
[2016-10-26] MEDS ORDERED: SODIUM CHLORIDE 0.9% 1000ML 1,000 ML IV STA ×2 (00:30)
[2016-10-26] MEDS ORDERED: ONDANSETRON INJ 2 MG/ML 2 ML VIAL IV STA (00:30)
[2016-10-26] MEDS ORDERED: KETOROLAC TROMETHAMINE 30 MG/ML VIAL IV STA (00:30)
[2016-10-26 01:09] LABS: BASO % 0.3 %; BASO ABS # 0.03 K/uL (0-0.2); COMPLETE YES; EOS % 1.6 %; IG% 0.3 %; LYMPH % 32.1 %; LYMPH ABS # 3.56 K/uL (1.2-3.4); MEAN CELL VOLUME 84.4 fL (80-100); MEAN CORPUSCULAR HEMOGLOBIN 28.6 pg (25-34); MEAN CORPUSCULAR HGB CONC 33.8 g/dl (32-36); MONO % 9.7 %; PLATELET COUNT 189 K/uL (130-400); RED BLOOD COUNT 4.62 M/uL (4.2-5.4); WHITE BLOOD COUNT 11.09 K/uL (4.8-10.8)
[2016-10-26 01:13] LABS: MANUAL MICROSCOPIC REQUIRED? NO; REVIEW REQ? NO; URINE APPEARANCE CLEAR (CLEAR); URINE BILIRUBIN NEG (NEG); URINE COLOR YELLOW; URINE EPITHELIAL CELL AUTO >30 /lpf (0-5); URINE NITRITE NEG (NEG); URINE PH 5.5 (4.5-7.5); URINE SPECIFIC GRAVITY 1.031 (1.000-1.030); UROBILINOGEN NEG (NEG); ZZUR CULT IF INDIC CLEAN CATCH NO
[2016-10-26] MEDS ORDERED: CEFU1TAB36 PO (01:18)
[2016-10-26 01:27] LABS: BUN/CREATININE RATIO 28.7 (10-20); CALCIUM 8.9 mg/dl (8.5-10.1); CREATININE 0.79 mg/dl (0.60-1.20); POTASSIUM 3.7 mmol/L (3.5-5.1)
[2016-10-26 01:32] LABS: PREG INTERNAL NEGATIVE QC NEG CLEAR BACKGROUND; PREG INTERNAL POSITIVE QC POS CONTROL LINE
[2016-10-26 03:31] VITALS: BP 100/50
--- NOTE | 2016-10-26 04:38 | EMERGENCY ROOM VISIT NOTE ---
History First contact with patient: 00:23 Chief Complaint: FLANK PAIN Stated Complaint: SEVERE LEFT SIDE CRAMPS History of Present Illness The patient is a 26 year old female who presents to the Emergency Room with complaints of left lower suprapubic cramping and side pain for the past day who states last month she had a similar episode. Pain currently 6 out of 10. Nothing makes it better or worse. Patient saw her OB doctor was told this could be an ovarian cyst. No imaging was ordered. Patient denies chest pain, dyspnea, fever, chills, vomiting, diarrhea, back pain, urinary symptoms, vaginal itching or discharge. She has an IUD. She states she does not feel at risk for STI's and does not want testing. Review of Systems See HPI for pertinent positives & negatives. A total of 10 systems reviewed and were otherwise negative. Past Medical/Surgical History Medical Problems: (1) Bipolar disorder (2) Bronchitis (3) Bronchitis Nos (4) Cat bite (5) Cellulitis (6) Cellulitis of left upper extremity (7) Contusion of right hand (8) Cough (9) Dog Bite (10) Fall from slip, trip, or stumble (11) Finger Injury Nos (12) Head Injury, Nos (13) Infected dog bite of hand (14) Injury of left little finger (15) SIRS (systemic inflammatory response syndrome) PTSD Social History Smoking Status: Never Smoker Drug Use: none Marital Status: single Housing Status: lives with family Occupation Status: employed Current/Historical Medications Scheduled Aripiprazole (Abilify), 2 MG PO Q2D Cefuroxime Axetil (Cefuroxime Axetil), 500 MG PO BID Fluvoxamine Maleate (Luvox), 300 MG PO QPM Lamotrigine (Lamotrigine), 75 MG PO QPM Topiramate (Topamax), 75 MG PO QPM Scheduled PRN Lorazepam (Ativan), 1 MG PO QID PRN for Anxiety Physical Exam Vital Signs Date Time Temp Pulse Resp B/P (MAP) Pulse Ox O2 Delivery O2 Flow Rate FiO2 10/26/16 03:31 74 20 100/50 96 Room Air 10/26/16 01:37 64 20 111/64 98 Room Air 10/26/16 00:18 37.0 77 18 140/88 98 Room Air Physical Exam VITALS: Vitals are noted on the nurse's note and reviewed by myself. Vital signs stable. GENERAL: Pleasant female, in no acute distress, nondiaphoretic, well-developed well-nourished. SKIN: The skin was without rashes, erythema, edema, or bruising. There is no tenting of the skin. Capillary reflex less than 2 seconds. HEAD: Normocephalic atraumatic. EARS: External auditory canals clear, tympanic membranes pearly pugh without erythema or effusion bilaterally. EYES: Pupils equal round and reactive to light and accommodation. Conjunctivae without injection, sclerae without icterus. Extraocular movements intact. NOSE: Patent, turbinates without inflammation or discharge. MOUTH: Mucous membranes moist. Pharynx without erythema or exudate. Uvula midline. Airway patent. Tongue does not deviate. NECK: Supple without nuchal rigidity. No lymphadenopathy. No thyromegaly. Cervical spine is nontender. No JVD. HEART: Regular rate and rhythm without murmurs gallops or rubs. LUNGS: Clear to auscultation bilaterally without wheezes, rales or rhonchi. No dullness to percussion. No retractions or accessory muscle use. ABDOMEN: Positive bowel sounds x 4. Normal tympanic percussion. Soft, protuberant, obese, tender to palpation left lower suprapubic area, no CVA tenderness, without masses or organomegaly. Valdivia sign negative. No guarding or rebound tenderness. MUSCULOSKELETAL: No muscle atrophy, erythema, or edema noted. NEURO: Patient was alert and oriented to person place and time. Normal sensation to light and sharp touch. No focal neurological deficits. Medical Decision & Procedures Laboratory Results 10/26/16 00:45 Red Blood Count 4.62, Mean Corpuscular Volume 84.4, Mean Corpuscular Hemoglobin 28.6, Mean Corpuscular Hemoglobin Concent 33.8, Mean Platelet Volume 10.0, Neutrophils (%) (Auto) 56.0, Lymphocytes (%) (Auto) 32.1, Monocytes (%) (Auto) 9.7, Eosinophils (%) (Auto) 1.6, Basophils (%) (Auto) 0.3, Neutrophils # (Auto) 6.21, Lymphocytes # (Auto) 3.56, Monocytes # (Auto) 1.08, Eosinophils # (Auto) 0.18, Basophils # (Auto) 0.03 8/24/17 00:45 Test 10/26/16 00:45 White Blood Count 11.09 K/uL (4.8-10.8) Red Blood Count 4.62 M/uL (4.2-5.4) Hemoglobin 13.2 g/dL (12.0-16.0) Hematocrit 39.0 % (37-47) Mean Corpuscular Volume 84.4 fL (80-100) Mean Corpuscular Hemoglobin 28.6 pg (25-34) Mean Corpuscular Hemoglobin Concent 33.8 g/dl (32-36) Platelet Count 189 K/uL (130-400) Mean Platelet Volume 10.0 fL (7.4-10.4) Neutrophils (%) (Auto) 56.0 % Lymphocytes (%) (Auto) 32.1 % Monocytes (%) (Auto) 9.7 % Eosinophils (%) (Auto) 1.6 % Basophils (%) (Auto) 0.3 % Neutrophils # (Auto) 6.21 K/uL (1.4-6.5) Lymphocytes # (Auto) 3.56 K/uL (1.2-3.4) Monocytes # (Auto) 1.08 K/uL (0.11-0.59) Eosinophils # (Auto) 0.18 K/uL (0-0.5) Basophils # (Auto) 0.03 K/uL (0-0.2) RDW Standard Deviation 40.3 fL (36.4-46.3) RDW Coefficient of Variation 13.1 % (11.5-14.5) Immature Granulocyte % (Auto) 0.3 % Immature Granulocyte # (Auto) 0.03 K/uL (0.00-0.02) Urine Color YELLOW Urine Appearance CLEAR (CLEAR) Urine pH 5.5 (4.5-7.5) Urine Specific [place] 1.031 (1.000-1.030) Urine Protein NEG (NEG) Urine Glucose (UA) NEG (NEG) Urine Ketones NEG (NEG) Urine Occult Blood NEG (NEG) Urine Nitrite NEG (NEG) Urine Bilirubin NEG (NEG) Urine Urobilinogen NEG (NEG) Urine Leukocyte Esterase TRACE (NEG) Urine WBC (Auto) 1-5 /hpf (0-5) Urine RBC (Auto) 0-4 /hpf (0-4) Urine Hyaline Casts (Auto) 1-5 /lpf (0-5) Urine Epithelial Cells (Auto) >30 /lpf (0-5) Urine Bacteria (Auto) NEG (NEG) Anion Gap 4.0 mmol/L (3-11) Est Creatinine Clear Calc Drug Dose 139.8 ml/min Estimated GFR () 118.9 Estimated GFR (Non- 102.6 BUN/Creatinine Ratio 28.7 (10-20) Calcium Level 8.9 mg/dl (8.5-10.1) Human Chorionic Gonadotropin, Qual NEG (NEG) Medications Administered Medications (Trade) Dose Ordered Sig/Terence Route Start Time Stop Time Status Last Admin Dose Admin Sodium Chloride 1,000 ml @ 999 mls/hr Q1H1M STAT IV 10/26/16 00:30 10/26/16 01:30 DC 10/26/16 00:52 999 MLS/HR Sodium Chloride 1,000 ml @ 125 mls/hr Q8H STAT IV 10/26/16 00:30 10/26/16 08:29 10/26/16 00:30 125 MLS/HR Ketorolac Tromethamine (Toradol Inj) 30 mg NOW STAT IV 10/26/16 00:30 10/26/16 00:34 DC 10/26/16 00:52 30 MG Ondansetron HCl (Zofran Inj) 4 mg NOW STAT IV 10/26/16 00:30 10/26/16 00:34 DC 10/26/16 00:52 4 MG ED Course Prior records/ancillary studies reviewed. Triage Nursing notes reviewed. Additional history obtained from family The patient's history was concerning for abdominal pain. Differential diagnosis: Etiologies such as ovarian cyst, ovarian torsion, , appendicitis, diverticulitis, PUD, biliary pathology, UTI, pancreatitis, obstruction, mesenteric ischemia, aortic pathology, infections, inflammatory bowel disease, renal colic, as well as others were entertained. Physical examination findings: As above. ER treatment provided: Toradol, Zofran, IV fluids On reassessment the patient felt better. Diagnostics interpreted by me: The labs revealed mild leukocytosis. Negative urine. Negative hCG Imaging studies: Ultrasound was concerning for left ovarian cyst. No hydronephrosis per radiology Exam and history seem consistent with resolving left ovarian cyst. Patient is neurovascularly and neurologically intact. She is well-appearing. Patient was advised to follow-up with her OB in a few days or here in the ER sooner for abdominal pain, fevers, vomiting, worsening signs or symptoms or as needed. Patient did not have an acute abdomen on exam. She is well-appearing. She is tolerating fluids.By the evaluation outlined above emergent etiologies such as appendicitis, diverticulitis, PUD, biliary pathology, UTI, pancreatitis, obstruction, mesenteric ischemia, aortic pathology, infections, inflammatory bowel disease, renal colic, as well as others were deemed relatively unlikely. The pt informed about the findings as listed above. All questions were answered and pleased with the treatment. Return instructions were outlined and the patient was discharged in stable condition. Referral: The patient was referred back to their primary care physician and [facility] [employer] [facility] for follow-up in 2 to 3 days for a recheck of the current condition. Case reviewed with my attending. Medical Decision As above Medication Reconcilliation Current Medication List: was personally reviewed by me Blood Pressure Screening Patient's blood pressure: Normal blood pressure Impression Primary Impression: Left ovarian cyst Departure Information Dispostion Home / Self-Care Condition GOOD Referrals RV. Rawls MD (PCP) Patient Instructions My [facility] Additional Instructions Repeat pelvic ultrasound in 6 weeks for resolution of cyst. Ibuprofen(Motrin, Advil) may be used for fever or pain. Use 600mg every six hours as needed. Take with food. Avoid using more than 2400mg in a 24 hour period. Do not use 2400mg per day for more than three consecutive days without physician direction. Prolonged inappropriate use can lead to stomach upset or ulcers. (AND/OR) Acetaminophen(Tylenol) may be used for fever or pain. Use 1000mg every six hours as needed. Avoid using more than 3000mg in a 24 hour period. Rest and drink plenty of fluids as tolerated. Continue current medications. Avoid strenuous activities and anything that worsens your pain. Resume normal activities once your symptoms resolve. Return to the ER immediately for worsening or persistent abdominal pain, vomiting, fevers, chest pains, difficulty breathing, worsening of your condition , or as needed. Follow up with your primary physician and [facility] in 2-3 days for a recheck of your current condition.
[2016-10-26 04:47] VITALS: PULSE 74; O2SAT 98
--- NOTE | 2016-10-26 06:57 | DIAGNOSTIC IMAGING REPORT ---
(RENAL)RETROPERITON COMP HISTORY: 26 years-old Female acute left lower quadrant abdominal pain. COMPARISON: Abdominal ultrasound 12/19/2013. TECHNIQUE: Multiple real-time significant images of the kidneys and urinary bladder were obtained assessing grayscale appearance and color flow. FINDINGS: Right kidney measures 11.0 x 4.4 x 5.2 cm and is within normal limits without hydronephrosis, shadowing calculi or mass. Left kidney measures 10.1 x 5.5 x 4.7 cm and is within normal limits without renal calculus, hydronephrosis or focal mass. Bilateral ureteral jets are documented. Urinary bladder is unremarkable. Incidental note is made of enlarged spleen, 12.6 cm. Additionally, there is slightly increased echogenicity with poor through transmission of the liver suggesting fatty infiltration. Apparent intrauterine device is noted in the mid uterus. IMPRESSION: 1. Unremarkable sonographic appearance of the bladder and bilateral kidneys without renal calculi or hydronephrosis. 2. Incidental note is made of mildly enlarged spleen, 12.6 cm and fatty infiltration of the liver. The above report was generated using voice recognition software. It may contain grammatical, syntax or spelling errors. Electronically signed by: Geoff Barksdale M.D. 10/26/2016 6:56 AM Dictated Date/Time: 10/26/2016 6:53 AM
--- NOTE | 2016-10-26 07:11 | DIAGNOSTIC IMAGING REPORT ---
PELVIC ULTRASOUND CLINICAL HISTORY: Left lower quadrant pain. COMPARISON STUDY: None. TECHNIQUE: Transabdominal and transvaginal sonography of the pelvis was performed. FINDINGS: The uterus measures 7.3 x 3 x 4.7 cm. An intrauterine device is appropriately positioned. Endometrium measures 5 mm in thickness. Right ovary is normal, measuring 3 x 2.2 x 1.7 cm. Left ovary measures 3.4 x 2.4 x 2.9 cm. There is color flow within each ovary. Note is made of a 2 x 1.4 x 1.4 cm mildly complex cystic focus within left ovary. No free fluid was noted within the pelvis. IMPRESSION: 1. No sonographic evidence of ovarian torsion. 2. 2 cm mildly complex cystic lesion within the left ovary which may reflect a corpus luteal cyst. 3. Appropriately positioned intrauterine device. Electronically signed by: Ambrocio Rachel M.D. 10/26/2016 7:09 AM Dictated Date/Time: 10/26/2016 7:07 AM
== END 2016-10-26 04:48 | disposition home or self-care (01) ==
LOC: C.EDB 00:08
DX: N83.202 Unspecified ovarian cyst, left side (principal); F31.9 Bipolar disorder, unspecified; Z79.899 Other long term (current) drug therapy

== ENCOUNTER → 2016-12-27 | Outpatient (CLI) | payer BC, OTHER ==
[~2016-12-27] MED LIST changes: +CEFU1TAB36 PO; +LEVO-13 PO; +ONDA4TAB9 PO; -TPM/50 PO
== END | disposition home or self-care (01) ==
LOC: C.RDSM 13:30
PROVIDERS: ATTEND Orthopaedic Surgery
DX: S62.109A Fracture of unspecified carpal bone, unspecified wrist, initial encounter for closed fracture (principal); X58.XXXA Exposure to other specified factors, initial encounter

== ENCOUNTER → 2017-06-25 | Outpatient (CLI) | payer OTHER ==
[~2017-06-25] MED LIST changes: -CEFU1TAB36 PO; -LEVO-13 PO
[2017-06-25 16:34] LABS: HEMATOCRIT 37.6 % (37-47); HEMOGLOBIN 12.8 g/dL (12.0-16.0); MEAN CELL VOLUME 83.7 fL (80-100); MEAN CORPUSCULAR HEMOGLOBIN 28.5 pg (25-34); MEAN PLATELET VOLUME 10.1 fL (7.4-10.4); PLATELET COUNT 169 K/uL (130-400); RED CELL DISTRIBUTION WIDTH CV 13.2 % (11.5-14.5); RED CELL DISTRIBUTION WIDTH SD 40.4 fL (36.4-46.3); WHITE BLOOD COUNT 6.48 K/uL (4.8-10.8)
[2017-06-25 16:54] LABS: BASO % 0.3 %; BASO ABS # 0.02 K/uL (0-0.2); EOS % 1.1 %; EOS ABS # 0.07 K/uL (0-0.5); IG# 0.01 K/uL (0.00-0.02); LYMPH % 28.4 %; LYMPH ABS # 1.84 K/uL (1.2-3.4); MONO ABS # 0.78 K/uL (0.11-0.59); NEUT ABS # 3.76 K/uL (1.4-6.5)
[2017-06-25 17:11] LABS: ALKALINE PHOSPHATASE 128 U/L (45-117); ALT/SGPT 32 U/L (12-78); AST/SGOT 28 U/L (15-37); BLOOD UREA NITROGEN 7 mg/dl (7-18); CARBON DIOXIDE 24 mmol/L (21-32); CREATININE 0.96 mg/dl (0.60-1.20); GLUCOSE 94 mg/dl (70-99); POTASSIUM 3.4 mmol/L (3.5-5.1); SODIUM 141 mmol/L (136-145)
[2017-06-25 17:49] LABS: HEP C IGG 13 YRS+OLDER_RFLX NEG (NEG)
== END | disposition home or self-care (01) ==
LOC: C.LAB1850 15:02
PROVIDERS: ATTEND Internal Medicine
DX: R19.7 Diarrhea, unspecified (principal)